=== PATIENT | male | born 1995 | race Caucasian/White ===

== ENCOUNTER 2016-07-23 22:46 | Emergency (ER) | payer SELFPAY ==
[~2016-07-23 22:46] MED LIST: NORCO 325 MG-51 TAB PO
[2016-07-23 23:46] VITALS: BP 117/64
== END 2016-07-23 23:46 | disposition home or self-care (01) ==
LOC: ED 22:46
DX: K64.4 Residual hemorrhoidal skin tags (principal)

== ENCOUNTER 2019-01-25 14:55 | Emergency (ER) | payer OTHER ==
[~2019-01-25] VITALS: Ht 165.1 cm; Wt 51.4 kg
[2019-01-25 16:47] VITALS: BP 94/55
== END 2019-01-25 16:42 | disposition home or self-care (01) ==
LOC: ED 14:55
DX: S06.0X0A Concussion without loss of consciousness, initial encounter (principal); M27.8 Other specified diseases of jaws; G43.909 Migraine, unspecified, not intractable, without status migrainosus; F17.210 Nicotine dependence, cigarettes, uncomplicated; W01.111A Fall on same level from slipping, tripping and stumbling with subsequent striking against power tool or machine, initial encounter; Y92.69 Other specified industrial and construction area as the place of occurrence of the external cause; Y99.0 Civilian activity done for income or pay

== ENCOUNTER → 2019-12-20 | Outpatient (CLI) | payer SELFPAY | LOC: LAB 12:23 | DX: R05 Cough (principal); R50.9 Fever, unspecified; M79.10 Myalgia, unspecified site; J02.9 Acute pharyngitis, unspecified; R53.83 Other fatigue; R09.81 Nasal congestion; Z20.828 Contact with and (suspected) exposure to other viral communicable diseases ==

== ENCOUNTER 2023-11-15 21:09 | Emergency (ER) | payer SELFPAY | END 2023-11-15 21:56 | disposition home or self-care (01) | LOC: ED 21:09 | DX: S29.011A Strain of muscle and tendon of front wall of thorax, initial encounter (principal); X58.XXXA Exposure to other specified factors, initial encounter ==